=== PATIENT | female | born 1980 | race American Indian/Alaskan Native ===

== ENCOUNTER 2019-07-07 00:05 | Emergency (ER) | payer MEDICAID ==
[2019-07-07] MEDS ORDERED: ASPIRIN PO ONE (00:28)
[2019-07-07 00:59] LABS: Basophils % (Auto) 0.4 % (0.0-1.8); Eosinophils % (Auto) 0.1 % (0.0-4.3); Lymphocytes % (Auto) 31.4 % (13.4-35.0); Mean Corpuscular HGB Conc 29 % (30-34); Monocytes # (Auto) 0.5 K/mm3 (0.0-0.8); Monocytes % (Auto) 3.6 % (0.0-7.3); Platelet Count 306 K/mm3 (140-440); Red Blood Count 4.61 M/mm3 (3.65-5.03)
[2019-07-07 01:21] LABS: BUN/Creatinine Ratio 11; Blood Urea Nitrogen 8 mg/dL (7-17); Calcium 8.3 mg/dL (8.4-10.2); Hemolysis Index 0
[2019-07-07 01:53] LABS: Hematocrit 26.8 % (30.3-42.9); Hemoglobin 7.7 gm/dl (10.1-14.3); Mean Corpuscular Volume 58 fl (79-97)
[2019-07-07 01:54] LABS: Red Cell Distribution Width 22.7 % (13.2-15.2)
--- NOTE | 2019-07-07 02:01 | XRay Report ---
CHEST 1 VIEW 07/07/2019 1:53 AM INDICATION / CLINICAL INFORMATION: Chest Pain. COMPARISON: None available. FINDINGS: SUPPORT DEVICES: None. HEART / MEDIASTINUM: No significant abnormality. LUNGS / PLEURA: No significant pulmonary or pleural abnormality. No pneumothorax. ADDITIONAL FINDINGS: No significant additional findings. IMPRESSION: 1. No acute findings. Signer Name: Les Hernandez MD Signed: 07/07/2019 1:57 AM Workstation Name: [id number]
[2019-07-07 02:19] VITALS: BP 118/78
[2019-07-07] MEDS ORDERED: DECADRON IM ONE (02:32)
[2019-07-07] MEDS ORDERED: ATROVENT IH ONE (02:32)
[2019-07-07] MEDS ORDERED: PROVENTIL IH ONE (02:32)
[2019-07-07] MEDS ORDERED: ZOFRAN ODT PO ONE (02:32)
[2019-07-07] MEDS ORDERED: TESSALON PERLES PO ONE (02:33)
--- NOTE | 2019-07-07 03:46 | Emergency Department Report ---
ED General Adult HPI - General Chief complaint: Chest Pain Stated complaint: CHEST PAIN/JEANNA Time Seen by Provider: 07/07/19 02:23 Source: patient Mode of arrival: Ambulatory Limitations: No Limitations - History of Present Illness Initial comments: Patient is a 39-year-old [place] female who has run out of her albuterol inhaler. Patient states she's had some increased work of breathing coughing for the last week. Patient states that she is able to take a friend's nebulizer treatment several times this week which did help briefly. Patient states she has a dry hacking cough. Patient denies fevers chills nausea vomiting. Patient states cough is worsening. Severity scale (0 -10): 8 Quality: constant (tight ) - Related Data Allergies Allergy/AdvReac Type Severity Reaction Status Date / Time morphine Allergy Itching Verified 07/07/19 00:11 prednisone AdvReac Diarrhea Verified 07/07/19 00:12 ED Review of Systems ROS: Stated complaint: CHEST PAIN/JEANNA Other details as noted in HPI Comment: All other systems reviewed and negative ED Past Medical Hx - Past Medical History Previous Medical History?: Yes Hx Asthma: Yes - Surgical History Past Surgical History?: Yes Additional Surgical History: Csection x 2, Tubal Ligation, Breast Reduction - Social History Smoking Status: Never Smoker ED Physical Exam - General Limitations: No Limitations General appearance: alert, in no apparent distress - Head Head exam: Present: atraumatic, normocephalic - Eye Eye exam: Present: normal appearance - ENT ENT exam: Present: mucous membranes moist - Neck Neck exam: Present: normal inspection - Respiratory Respiratory exam: Present: normal lung sounds bilaterally, wheezes (with coughing nonly). Absent: respiratory distress, rales, rhonchi - Cardiovascular Cardiovascular Exam: Present: regular rate, normal rhythm, normal heart sounds. Absent: systolic murmur, diastolic murmur, rubs, gallop - GI/Abdominal GI/Abdominal exam: Present: soft, normal bowel sounds. Absent: distended, tenderness, guarding, rebound - Extremities Exam Extremities exam: Present: normal inspection - Back Exam Back exam: Present: normal inspection - Neurological Exam Neurological exam: Present: alert, oriented X3 - Psychiatric Psychiatric exam: Present: normal affect, normal mood - Skin Skin exam: Present: warm, dry, intact, normal color. Absent: rash ED Course Vital Signs 07/07/19 07/07/19 07/07/19 00:24 02:17 03:39 Temperature 98.6 F Pulse Rate 98 H 86 Pulse Rate [ 70 Posterior Bilateral Throughout] Respiratory 20 16 Rate Respiratory 12 Rate [Posterior Bilateral Throughout] Blood Pressure 142/90 Blood Pressure 118/78 [Left] O2 Sat by Pulse 98 98 Oximetry ED Medical Decision Making - Lab Data Result diagrams: 07/07/19 00:30 07/07/19 00:30 Lab Results 07/07/19 07/07/19 07/07/19 Range/Units 00:30 00:30 00:30 WBC 12.9 H (4.5-11.0) K/mm3 RBC 4.61 (3.65-5.03) M/mm3 Hgb 7.7 L (10.1-14.3) gm/dl Hct 26.8 L (30.3-42.9) % MCV 58 L (79-97) fl MCH 17 L (28-32) pg MCHC 29 L (30-34) % RDW 22.7 H (13.2-15.2) % Plt Count 306 (140-440) K/mm3 Lymph % (Auto) 31.4 (13.4-35.0) % [place] % (Auto) 3.6 (0.0-7.3) % Eos % (Auto) 0.1 (0.0-4.3) % Baso % (Auto) 0.4 (0.0-1.8) % Lymph # 4.0 (1.2-5.4) K/mm3 [place] # 0.5 (0.0-0.8) K/mm3 Eos # 0.0 (0.0-0.4) K/mm3 Baso # 0.0 (0.0-0.1) K/mm3 Seg Neutrophils % 64.5 (40.0-70.0) % Seg Neutrophils # 8.3 H (1.8-7.7) K/mm3 Sodium 139 (137-145) mmol/L Potassium 3.3 L (3.6-5.0) mmol/L Chloride 101.7 (98-107) mmol/L Carbon Dioxide 25 (22-30) mmol/L Anion Gap 16 mmol/L BUN 8 (7-17) mg/dL Creatinine 0.7 (0.7-1.2) mg/dL Estimated GFR > 60 ml/min BUN/Creatinine Ratio 11 % Glucose 136 H (65-100) mg/dL Calcium 8.3 L (8.4-10.2) mg/dL Troponin T < 0.010 (0.00-0.029) ng/mL HCG, Qual Negative (Negative) - Radiology Data Radiology results: report reviewed (CXR WNL) - Medical Decision Making Patient is a 39-year-old black female who is here for her asthma exacerbation. The patient given a neb treatments which did help her symptoms. Patient to have refills of her albuterol inhaler and also restart short course of steroids to help with the bronchial inflammation. Stable for discharge. Critical care attestation.: If time is entered above; I have spent that time in minutes in the direct care of this critically ill patient, excluding procedure time. ED Disposition Clinical Impression: Asthma exacerbation Qualifiers: Asthma severity: mild Asthma persistence: persistent Qualified Code(s): J45.31 - Mild persistent asthma with (acute) exacerbation Disposition: DC-01 TO HOME OR SELFCARE Is pt being admited?: No Does the pt Need Aspirin: No Condition: Stable Instructions: Asthma (ED) Referrals: WILFRED ARMANDO MD [Primary Care Provider] - 3-5 Days Time of Disposition: 03:45
== END 2019-07-07 04:32 | disposition home or self-care (01) ==
LOC: ED 00:05
DX: J45.901 Unspecified asthma with (acute) exacerbation (principal); Z88.5 Allergy status to narcotic agent; Z98.51 Tubal ligation status
CPT/HCPCS: 36415; 71045; 80048; 84484; 84703; 85025; 93005; 93010; 94640; 96372; 99285; J1100; 94644; Q0162